=== PATIENT | male | born 1960 ===

== ENCOUNTER 2017-07-19 18:26 | Emergency (ER) | payer OTHER ==
[2017-07-19] MEDS ORDERED: HYDROmorphone INJ* 1 MG/ML CARPUJECT SYRINGE IV ONE (19:05)
[2017-07-19] MEDS ORDERED: Ketorolac INJ* 30 MG/ML 1 ML VIAL IV ONE (19:05)
[2017-07-19] MEDS ORDERED: Ondansetron INJ* 2 MG/ML VIAL IV ONE (19:05)
[2017-07-19] MEDS ORDERED: NS 0.9% 1000 ML* 2,000 ML IV ONE (19:05)
--- NOTE | 2017-07-19 19:43 | RAD ---
Indication: Right flank pain. CT of the abdomen and pelvis was performed without oral or IV contrast administration. Coronal and sagittal reconstructed images were obtained. The lung bases demonstrate no pleural fluid, nodules or masses. Heart is of normal size without evidence of pericardial effusion. The gallbladder demonstrates no calcified gallstones. No pericholecystic fluid or wall thickening is identified. The liver is normal in size. There are multiple low density lesion which appear to be fluid density consistent with cysts in both the left and right lobes. No intrahepatic ductal dilatation is noted. The spleen is normal in size. The pancreas demonstrates no mass or pancreatic ductal dilatation. The common duct is not dilated. No adrenal lesions are noted. The kidneys demonstrates right hydronephrosis and hydroureter. There appears to be a duplicated right renal collecting system. A single ureter is noted with a calculus just above the right ureterovesicular junction measuring 5 mm. The left kidney demonstrates no hydronephrosis although a calculus measuring up to 7 mm is noted in the lower pole. No retroperitoneal lymphadenopathy is noted. No dilated loops of bowel are noted. CT of the pelvis demonstrates no retroperitoneal or pelvic lymphadenopathy. There is a left-sided inguinal hernia which is likely of the indirect type. IMPRESSION: Moderate degree of right hydronephrosis and hydroureter. There is a 5 mm calculus in the distal right ureter just above the right ureterovesicular junction. A duplicated right renal collecting system is present. Nonobstructing calculi is noted in the lower pole of the left kidney. Left-sided inguinal hernia is noted. Hepatic cysts are present.
[2017-07-19 19:59] LABS: Hematocrit 46 % (42-52); Mean Corpuscular HGB Conc 35 g/dl (31-36); Mean Corpuscular Hemoglobin 30 pg (27-31); Mean Corpuscular Volume 85 fL (80-94); Mean Platelet Volume 8 um3 (7.4-10.4); Red Blood Count 5.43 10^6/ul (4.0-5.4); Red Cell Distribution Width 13 % (10.5-15); White Blood Count 12.2 10^3/ul (3.5-10.8)
[2017-07-19 20:10] LABS: Budding Yeast Present (Absent); Urine Bacteria Absent (Absent); Urine Bilirubin Negative (Negative); Urine Glucose Negative (Negative); Urine Nitrite Negative (Negative)
[2017-07-19 20:15] LABS: ALT 14 U/L (7-52); AST 19 U/L (13-39); Albumin 4.4 g/dL (3.2-5.2); Alkaline Phosphatase 53 U/L (34-104); Anion Gap 14 mmol/L (2-11); Blood Urea Nitrogen 16 mg/dL (6-24); C Reactive Protein < 1.00 mg/L (< 5.00); CO2 Carbon Dioxide 23 mmol/L (22-32); Calcium 9.7 mg/dL (8.6-10.3); Chloride 102 mmol/L (101-111); EGFR African American 91.9 (>60); EGFR Non-African American 71.5 (>60); Globulin 2.9 g/dL (2-4); Glucose 111 mg/dL (70-100); Lipase 27 U/L (11.0-82.0); Potassium 3.1 mmol/L (3.5-5.0); Sodium 139 mmol/L (133-145); Total Protein 7.3 g/dL (6.4-8.9)
[2017-07-19] MEDS ORDERED: Tamsulosin CAP* 0.4 MG PO ONE (20:54)
--- NOTE | 2017-07-19 21:00 | ED ---
GI/ HPI - HPI Summary HPI Summary: Pt here w/ Rt sided flank, side and groin pain today. Pain is so bad, he vomited. Was dx'd w/ kidney stone 1 month ago here and was told to f/u w/ urology but has not done so yet. He tried taking 15mg oxycodone he was given then prior to arrival but vomited this back up. He was given pain med upon arrival as he reported greater than 10/10 pain. He is comfortable now and no N/ V since meds of dialudid, toradol and zofran. He is still urinating. Up until pain started, he's been eating and drinking well and denies fever, chills, diarrhea - has been having normal BM's. 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 Pain Intensity: 10 - Allergy/Home Medications Allergies/Adverse Reactions: Allergies Allergy/AdvReac Type Severity Reaction Status Date / Time No Known Allergies Allergy Verified 07/19/17 18:32 PMH/Surg Hx/FS Hx/Imm Hx Previously Healthy: Yes Endocrine/Hematology History: Denies: Hx Anticoagulant Therapy, Hx Blood Disorders GI History: Denies: Hx Cirrhosis, Hx Crohn's Disease, Hx Diverticulosis, Hx Gall Bladder Disease, Hx Gastroesophageal Reflux Disease, Hx Gastrointestinal Bleed, Hx Hiatal Hernia, Hx Irritable Bowel, Hx Obstructive Bowel, Hx Ulcer, Hx Urosepsis History: Reports: Hx Kidney Stones - Rt kidney stone dx'd 1 month ago Denies: Hx Kidney Infection - Immunization History Date of Tetanus Vaccine: unk Date of Influenza Vaccine: none Infectious Disease History: No Infectious Disease History: Denies: Traveled Outside the [place] in Last 30 Days - Family History Known Family History: Positive: None - Social History Occupation: Employed Full-time Lives: With Family Alcohol Use: None Hx Substance Use: No Substance Use Type: Reports: None Hx Tobacco Use: No Smoking Status (MU): Never Smoked Tobacco Review of Systems Constitutional: Negative Negative: Fever, Chills Cardiovascular: Negative Respiratory: Negative Positive: Abdominal Pain, Vomiting, Nausea. Negative: Diarrhea Positive: see HPI Musculoskeletal: Negative Skin: Negative Neurological: Negative Psychological: Normal All Other Systems Reviewed And Are Negative: Yes Physical Exam Triage Information Reviewed: Yes Vital Signs On Initial Exam: Initial Vitals Temp Pulse Resp BP Pulse Ox 96.9 F 84 24 151/96 100 07/19/17 18:28 07/19/17 18:28 07/19/17 18:28 07/19/17 18:28 07/19/17 18:28 Vital Signs Reviewed: Yes Appearance: Positive: Well-Appearing, No Pain Distress - s/p pain medications, Well-Nourished Skin: Positive: Warm, Dry Head/Face: Positive: Normal Head/Face Inspection Eyes: Positive: Normal, EOMI ENT: Positive: Hearing grossly normal, Pharynx normal Respiratory/Lung Sounds: Positive: Clear to Auscultation, Breath Sounds Present Cardiovascular: Positive: Normal, RRR Abdomen Description: Positive: No Organomegaly, Soft Bowel Sounds: Positive: Present Male Genital Exam: Positive: normal genitalia, inguinal tenderness - mild TTP w / mild fullness compared to Rt - does not reproduce pain he's been having, scrotum tenderness (L) - mild TTP w/ fullness Musculoskeletal: Positive: Normal, Strength/ROM Intact Neurological: Positive: Normal, Sensory/Motor Intact, Alert, Oriented to Person Place, Time, CN Intact II-III Psychiatric: Positive: Normal - Sudha Coma Scale Coma Scale Total: 15 Diagnostics - Vital Signs Vital Signs Temp Pulse Resp BP Pulse Ox 07/19/17 19:50 16 07/19/17 18:28 96.9 F 84 24 151/96 100 - Laboratory Lab Results: Lab Results 07/19/17 07/19/17 07/19/17 Range/Units 19:40 19:40 19:40 WBC 12.2 H (3.5-10.8) 10^3/ul RBC 5.43 H (4.0-5.4) 10^6/ul Hgb 16.0 (14.0-18.0) g/dl Hct 46 (42-52) % MCV 85 (80-94) fL MCH 30 (27-31) pg MCHC 35 (31-36) g/dl RDW 13 (10.5-15) % Plt Count 248 (150-450) 10^3/ul MPV 8 (7.4-10.4) um3 Neut % (Auto) 76.6 (38-83) % Lymph % (Auto) 15.6 L (25-47) % [place] % (Auto) 7.2 (1-9) % Eos % (Auto) 0.1 (0-6) % Baso % (Auto) 0.5 (0-2) % Absolute Neuts (auto) 9.4 H (1.5-7.7) 10^3/ul Absolute Lymphs (auto) 1.9 (1.0-4.8) 10^3/ul Absolute Monos (auto) 0.9 H (0-0.8) 10^3/ul Absolute Eos (auto) 0 (0-0.6) 10^3/ul Absolute Basos (auto) 0.1 (0-0.2) 10^3/ul Absolute Nucleated RBC 0 10^3/ul Nucleated RBC % 0 INR (Anticoag Therapy) 0.94 (0.77-1.02) APTT 28.9 (26.0-36.3) seconds Sodium 139 (133-145) mmol/L Potassium 3.1 L (3.5-5.0) mmol/L Chloride 102 (101-111) mmol/L Carbon Dioxide 23 (22-32) mmol/L Anion Gap 14 H (2-11) mmol/L BUN 16 (6-24) mg/dL Creatinine 1.07 (0.67-1.17) mg/dL Est GFR ( Amer) 91.9 (>60) Est GFR (Non-Af Amer) 71.5 (>60) BUN/Creatinine Ratio 15.0 (8-20) Glucose 111 H (70-100) mg/dL Lactic Acid (0.5-2.0) mmol/L Calcium 9.7 (8.6-10.3) mg/dL Total Bilirubin 0.50 (0.2-1.0) mg/dL AST 19 (13-39) U/L ALT 14 (7-52) U/L Alkaline Phosphatase 53 (34-104) U/L C-Reactive Protein < 1.00 (< 5.00) mg/L Total Protein 7.3 (6.4-8.9) g/dL Albumin 4.4 (3.2-5.2) g/dL Globulin 2.9 (2-4) g/dL Albumin/Globulin Ratio 1.5 (1-3) Lipase 27 (11.0-82.0) U/L Urine Color Urine Appearance Urine pH (5-9) Ur Specific Ferguson (1.010-1.030) Urine Protein (Negative) Urine Ketones (Negative) Urine Blood (Negative) Urine Nitrate (Negative) Urine Bilirubin (Negative) Urine Urobilinogen (Negative) Ur Leukocyte Esterase (Negative) Urine WBC (Auto) (Absent) Urine RBC (Auto) (Absent) Amorphous Crystals (Absent) Urine Bacteria (Absent) Urine Yeast (Absent) Urine Glucose (Negative) 07/19/17 07/19/17 Range/Units 19:40 19:40 WBC (3.5-10.8) 10^3/ul RBC (4.0-5.4) 10^6/ul Hgb (14.0-18.0) g/dl Hct (42-52) % MCV (80-94) fL MCH (27-31) pg MCHC (31-36) g/dl RDW (10.5-15) % Plt Count (150-450) 10^3/ul MPV (7.4-10.4) um3 Neut % (Auto) (38-83) % Lymph % (Auto) (25-47) % [place] % (Auto) (1-9) % Eos % (Auto) (0-6) % Baso % (Auto) (0-2) % Absolute Neuts (auto) (1.5-7.7) 10^3/ul Absolute Lymphs (auto) (1.0-4.8) 10^3/ul Absolute Monos (auto) (0-0.8) 10^3/ul Absolute Eos (auto) (0-0.6) 10^3/ul Absolute Basos (auto) (0-0.2) 10^3/ul Absolute Nucleated RBC 10^3/ul Nucleated RBC % INR (Anticoag Therapy) (0.77-1.02) APTT (26.0-36.3) seconds Sodium (133-145) mmol/L Potassium (3.5-5.0) mmol/L Chloride (101-111) mmol/L Carbon Dioxide (22-32) mmol/L Anion Gap (2-11) mmol/L BUN (6-24) mg/dL Creatinine (0.67-1.17) mg/dL Est GFR ( Amer) (>60) Est GFR (Non-Af Amer) (>60) BUN/Creatinine Ratio (8-20) Glucose (70-100) mg/dL Lactic Acid 6.0 H* (0.5-2.0) mmol/L Calcium (8.6-10.3) mg/dL Total Bilirubin (0.2-1.0) mg/dL AST (13-39) U/L ALT (7-52) U/L Alkaline Phosphatase (34-104) U/L C-Reactive Protein (< 5.00) mg/L Total Protein (6.4-8.9) g/dL Albumin (3.2-5.2) g/dL Globulin (2-4) g/dL Albumin/Globulin Ratio (1-3) Lipase (11.0-82.0) U/L Urine Color Yellow Urine Appearance Cloudy Urine pH 9.0 (5-9) Ur Specific Ferguson 1.014 (1.010-1.030) Urine Protein Negative (Negative) Urine Ketones Trace H (Negative) Urine Blood 2+ H (Negative) Urine Nitrate Negative (Negative) Urine Bilirubin Negative (Negative) Urine Urobilinogen Negative (Negative) Ur Leukocyte Esterase Negative (Negative) Urine WBC (Auto) Trace(0-5/hpf) (Absent) Urine RBC (Auto) 3+(>10/hpf) H (Absent) Amorphous Crystals Present H (Absent) Urine Bacteria Absent (Absent) Urine Yeast Present H (Absent) Urine Glucose Negative (Negative) Result Diagrams: 07/19/17 19:40 07/19/17 19:40 Diagnostic Studies Comment: CT ab/pelvis: moderate degree of Rt hydronephrosis and hydroureter. There is a 5mm calculus at the distal right ureter just above the Rt UVJ. A duplicated renal collecting system is present. Nonobstructing calculi L kidney. Lt side inguinal hernia noted - no incarceration, inflammation or fluid noted. Hepatic cysts Lab Statement: Any lab studies that have been ordered have been reviewed, and results considered in the medical decision making process. Re-Evaluation - Re-Evaluation First Eval Change: Improved - pain and nausea resolved after zofran, toradol + dilaudid IV GIGU Course/Dx - Course Course Of Treatment: Pt presents w/ return of Rt sided flank pain radiating into his Rt side and groin. Had this pain last month and was dx'd w/ kidney stone (he believes about 5mm in size). Was rx'd flomax (has not taken) and oxycodone for pain. Took oxycodone 15mg today w/o relief but vomited 1.5 hours later - not sure if he absorped them completely. Has been able to urinate but seemed more difficult at one point here tonight. Received IV toradol, dilaudid and zofran and pain is much better, nausea/vomiting resolved. His CT confirmed 5mm stone at UVJ w/ moderate hydronephrosis and hydroureter. He is also found to have a duplicated renal collecting system. His WBC's are 12 w/o left shift and no fever and urine appears to be w/o infection - does have blood present. With stone passing to it's current location, no s/sx of infection, renal function WNL based on labs and pt has not yet tried flomax, will d/c w/ flomax, pain meds and strainer. Advised if pain is poorly controlled once again, return to ED w/ urology coverage. If we do not have this, [facility], [facility], [facility]. He was incidentally found to have a nonobstructing calculi L kidney 7mm. Lt sided inguinal hernia w/o complaint of pain and moving bowels - advised f/u w/ general surgery to monitor - if danger s/sx present, return to ED. Also found to have Hepatic cysts - discussed w/ pt and son and he will f/u w/ PCP for further investigation. LFT's are WNL here tonight. - Diagnoses Provider Diagnoses: Lower urinary tract stone, Nephrolithiasis, Inguinal hernia, Hepatic cyst - Physician Notifications Discussed Care Of Patient With: Calos Mehta Discharge - Discharge Plan Condition: Stable Disposition: HOME Patient Education Materials: Kidney Stones (ED), Inguinal Hernia (ED), How to Strain Your Urine (ED) Referrals: Black Olmstead MD [Primary Care Provider] - Kalia Pablo MD [Medical Doctor] - Antoni Colón MD [Medical Doctor] - Additional Instructions: #1) The source of your pain is most likely from the kidney stone you are passing on the Rt side. Take flomax (tamusolin) one time a day until you pass the stone. You may also take ibuprofen 600 mg every 6 hours with food alternating with oxycodone 10-15mg every 6 hours (take 1 med then 3 hours later may take the other and continue in this fashion). Once you pass the stone and pain resolves, you no longer need to take these pain medications. Strain every urine every time until you pass a stone(s) and take this specimen to your PCP for analysis. Because you have a 2nd stone in your Left kidney, it is important that you follow-up with a urologist. Call Friday to schedule appointment. *If pain worsens or you develop fever, chills, inability to urinate, return to ED (NOTE: inquire about urology coverage before choosing an ED - you may come here, or go to [facility], [facility], [facility], etc) #2) You were found to have an inguinal hernia. This does not appear to be posing a threat to your health at this time however if you develop pain in your Right lower groin, develop vomiting and/or diarrhea, fever, chills, inability to move bowels, go to the ED. Otherwise, follow-up with a general surgeon to decide if/when surgery is necessary. #3) You were found to have cysts in your liver. These do not appear to be an urgent threat to your health however it is important that you follow-up with your PCP.
[2017-07-19 22:26] VITALS: BP 98/51
== END 2017-07-19 22:27 | disposition home or self-care (01) ==
LOC: ED 18:26
DX: N13.2 Hydronephrosis with renal and ureteral calculous obstruction (principal); K40.90 Unilateral inguinal hernia, without obstruction or gangrene, not specified as recurrent; K76.89 Other specified diseases of liver
CPT/HCPCS: 36415; 74176; 80053; 81003; 81015; 83605; 83690; 85025; 85610; 85730; 86140; 96374; 96375; 99283; J1170; J1885; J2405

== ENCOUNTER 2017-07-23 23:02 | Emergency (ER) | payer OTHER ==
[2017-07-23] MEDS ORDERED: NS 0.9% 1000 ML* 1,000 ML IV ONE (23:36)
[2017-07-23] MEDS ORDERED: HYDROmorphone INJ* 2 MG/ML CARPUJECT SYRINGE IV SLOW PU ONE (23:36)
[2017-07-23] MEDS ORDERED: Ketorolac INJ* 30 MG/ML 1 ML VIAL IV PUSH ONE (23:37)
[2017-07-23] MEDS ORDERED: Metoclopramide IV* 5 MG/ML 2 ML VIAL IV SLOW PU ONE (23:37)
[2017-07-24] MEDS ORDERED: HYDROmorphone TAB* 4 MG PO PRN (00:48)
[2017-07-24] MEDS ORDERED: Metoclopramide TAB* 10 MG PO PRN (00:49)
--- NOTE | 2017-07-24 00:58 | ED ---
Tim Sanchez Tecjoon, scribed for Sim Haq MD on 07/23/17 at 2350 . Abdominal Pain/Male - HPI Summary HPI Summary: This patient is a 57 year old male presenting to [facility] with a chief complaint of right flank pain. Patient states that he has a 5mm stone and is scheduled for surgery tomorrow, but he just cant take the pain. The pain is rated 10/ 10 in severity. Symptoms aggravated by palpation. Symptoms alleviated by nothing. 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 Patient additionally reports nausea, vomiting, back pain. - History of Current Complaint Chief Complaint: EDFlankPain Stated Complaint: KINDEY STONE Time Seen by Provider: 07/23/17 23:26 Hx Obtained From: Patient Onset/Duration: Still Present, Worse Since - today Timing: Constant Severity Currently: Severe Pain Intensity: 10 Pain Scale Used: 0-10 Numeric Location: Flank - right Radiates: Yes Radiates to: Back Aggravating Factor(s): Other: - palpation Alleviating Factor(s): Nothing Associated Signs And Symptoms: Positive: Other - nausea, vomiting, back pain. - Allergies/Home Medications Allergies/Adverse Reactions: Allergies Allergy/AdvReac Type Severity Reaction Status Date / Time No Known Allergies Allergy Verified 07/19/17 18:32 PMH/Surg Hx/FS Hx/Imm Hx Previously Healthy: No Endocrine/Hematology History: Denies: Hx Anticoagulant Therapy, Hx Blood Disorders GI History: Denies: Hx Cirrhosis, Hx Crohn's Disease, Hx Diverticulosis, Hx Gall Bladder Disease, Hx Gastroesophageal Reflux Disease, Hx Gastrointestinal Bleed, Hx Hiatal Hernia, Hx Irritable Bowel, Hx Obstructive Bowel, Hx Ulcer, Hx Urosepsis History: Reports: Hx Kidney Stones - Rt kidney stone dx'd 1 month ago Denies: Hx Kidney Infection - Immunization History Date of Tetanus Vaccine: unk Date of Influenza Vaccine: none Infectious Disease History: No Infectious Disease History: Denies: Traveled Outside the US in Last 30 Days - Family History Known Family History: Negative: Blood Disorder - Social History Alcohol Use: None Hx Substance Use: No Substance Use Type: Reports: None Hx Tobacco Use: No Smoking Status (MU): Never Smoked Tobacco Review of Systems Negative: Fever Negative: Vomiting, Nausea Positive: flank pain Positive: Other - back pain All Other Systems Reviewed And Are Negative: Yes Physical Exam - Summary Physical Exam Summary: VITAL SIGNS: Reviewed. GENERAL: Patient is a well-developed and nourished male who is lying in the stretcher. Patient is not in any acute respiratory distress. Patient seems very uncomfortable due to pain. HEAD AND FACE: No signs of trauma. No ecchymosis, hematomas or skull depressions. No sinus tenderness. EYES: PERRLA, EOMI x 2, No injected conjunctiva, no nystagmus. EARS: Hearing grossly intact. Ear canals and tympanic membranes are within normal limits. MOUTH: Oropharynx within normal limits. NECK: Supple, trachea is midline, no adenopathy, no JVD, no carotid bruit, no c- spine tenderness, neck with full ROM. CHEST: Symmetric, no tenderness at palpation LUNGS: Clear to auscultation bilaterally. No wheezing or crackles. CVS: Regular rate and rhythm, S1 and S2 present, no murmurs or gallops appreciated. ABDOMEN: Right CVA tenderness. Bowel sounds are normal. EXTREMITIES: FROM in all major joints, no edema, no cyanosis or clubbing. NEURO: Alert and oriented x 3. No acute neurological deficits. Speech is normal and follows commands. SKIN: Dry and warm. 1st degree burn on back due to heating pad. Triage Information Reviewed: Yes Vital Signs On Initial Exam: Initial Vitals Temp Pulse Resp BP Pulse Ox 98.5 F 87 22 110/71 100 07/23/17 23:07 07/23/17 23:07 07/23/17 23:07 07/23/17 23:07 07/23/17 23:07 Vital Signs Reviewed: Yes - Sudha Coma Scale Coma Scale Total: 15 Diagnostics - Vital Signs Vital Signs Temp Pulse Resp BP Pulse Ox 07/23/17 23:07 98.5 F 87 22 110/71 100 - Laboratory Lab Statement: Any lab studies that have been ordered have been reviewed, and results considered in the medical decision making process. - CT CT Abd/Pel CT Interpretation: Positive (See Comments) - IMPRESSION: Moderate degree of right hydronephrosis and hydroureter. There is a 5 mm calculus in the distal right ureter just above the right ureterovesicular junction. A duplicated right renal collecting system is present. ED physician has reviewed this radiology report. CT Interpretation Completed By: Radiologist Abdominal Pain Fem Course/Dx - Course Course Of Treatment: This patient is a 57 year old male presenting to [facility] with a chief complaint of right flank pain. Patient states that he has a 5mm stone and is scheduled for surgery tomorrow, but he just cant take the pain. CT Abd/Pel reveals, per radiologist, IMPRESSION: Moderate degree of right hydronephrosis and hydroureter. There is a 5 mm calculus in the distal right ureter just above the right ureterovesicular junction. A duplicated right renal collecting system is present. ED physician has reviewed this radiology report. In the ED course the patient was given Reglan, Toradol, Dilaudid. Patient will be discharged and diagnosed with renal colic. Patient has an appointment for surgery tomorrow and is advised to follow up with PCP in 1 week. The patient is agreeable with this plan. - Diagnoses Provider Diagnoses: Renal colic Discharge - Discharge Plan Condition: Fair Disposition: HOME Patient Education Materials: Renal Colic (ED) Referrals: Black Olmstead MD [Primary Care Provider] - 1 Week Additional Instructions: Patient will be discharged and diagnosed with renal colic. Patient has an appointment for surgery tomorrow and is advised to follow up with PCP in 1 week. The patient is agreeable with this plan. RETURN TO EMERGENCY DEPARTMENT FOR ANY NEW OR WORSENING SYMPTOMS The documentation as recorded by the Tim argueta Tecjoon accurately reflects the service I personally performed and the decisions made by , Sim Haq MD.
[2017-07-24] MEDS ORDERED: Metoclopramide TAB* 10 MG ONE (01:01)
[2017-07-24 01:40] VITALS: BP 102/69
== END 2017-07-24 01:44 | disposition home or self-care (01) ==
LOC: ED 23:02
DX: N23 Unspecified renal colic (principal)
CPT/HCPCS: 96360; 96374; 96375; 99282; A9270-GY; J1170; J1885; J2765

== ENCOUNTER 2017-07-24 14:51 | Day surgery (SDC) | payer OTHER ==
--- NOTE | 2017-07-23 15:28 | HP ---
CC: Dr. Olmstead * DATE OF ADMISSION: 07/24/2017. AGE: 57-year-old male. ADMITTING DIAGNOSES: 1. Calculus right ureter. 2. Right hydronephrosis. PLANNED PROCEDURE: Right ureteroscopy, possible laser and stent insertion. SURGEON: Dr. Kalia Pablo. HISTORY OF PRESENT ILLNESS: Ronnell Arrington is a 57-year-old gentleman who has had episodic right flank pain for almost a month now. He had initially been evaluated in the emergency room in [place] at which time he was told he had a calculus in the right ureter. He continued to have pain and finally was evaluated at [facility] and a CT scan revealed a 5 mm obstructing calculus in the right distal ureter, in addition to a 7 mm left renal calculus. He is now being brought in for right ureteroscopy. PAST MEDICAL HISTORY: Unremarkable. Specifically, there is no history of diabetes mellitus or any other major systemic illness. PAST SURGICAL HISTORY: Significant for vasectomy. MEDICATIONS ON ADMISSION: Flomax 0.4 mg once a day and Percocet prn. ALLERGIES: No known drug allergies. FAMILY HISTORY: Negative for stones. SMOKING HISTORY: He is a nonsmoker. REVIEW OF SYSTEMS: He is otherwise in excellent health. He denies any chest pain or shortness of breath. There is no other major systemic illness. PHYSICAL EXAMINATION GENERAL: Pleasant, healthy-appearing, middle-aged gentleman. VITAL SIGNS: Blood pressure 122/82, pulse 74 per minute, temperature 97.8, oxygen saturation 99 percent on room air. CARDIOVASCULAR: Regular rate and rhythm. S1, S2. LUNGS: Clear bilaterally. ABDOMEN: Soft with right flank tenderness. 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 I gave him the option of continue conservative management, but since he has been having episodic pain for a month , he would like to proceed with right ureteroscopy and the procedure and possible risks were discussed in detail with him. All his questions were answered. I also explained the finding of the left renal calculus which probably will require lithotripsy at one point in the future. PLAN: Right ureteroscopy, possible laser and stent insertion. [id number]/[facility] #: [id number] [facility]
[~2017-07-24 14:51] MED LIST: Buffered Lidocaine 0.9% SYRIN* 5 ML/SYR SYRINGE ONE; cefTRIAXone(*) 2 GM ADDV.VIAL IVPB ONE
[2017-07-24] MEDS ORDERED: Gentamicin IVPREMIX 160 MG/160 ML BAG IV ONE (15:00)
[2017-07-24] MEDS ORDERED: Iohexol 180 (CONTRAST) 10 ML SDV IV ONE (15:57)
[2017-07-24] MEDS ORDERED: Propofol* 10 MG/ML 20 ML BTL IV PUSH ONE (16:36)
[2017-07-24] MEDS ORDERED: fentaNYL* 50 MCG/ML 2 ML VIAL (100 MCG VIAL) ONE (16:36)
[2017-07-24] MEDS ORDERED: Lidocaine 2% PF * 5 ML VIAL ONE (16:36)
[2017-07-24] MEDS ORDERED: Dexamethasone IV* 4 MG/ML 1 ML (4 MG) ONE (16:36)
[2017-07-24] MEDS ORDERED: Famotidine IV* 10 MG/ML 2 ML (20 mg) ONE (16:36)
[2017-07-24] MEDS ORDERED: Midazolam* 1 MG/ML 2 ML VIAL (2 MG) ONE (16:36)
[2017-07-24] MEDS ORDERED: Ondansetron INJ* 2 MG/ML VIAL ONE (16:36)
[2017-07-24] MEDS ORDERED: Buffered Lidocaine 0.9% SYRIN* 5 ML/SYR SYRINGE INTRADERM ONE (16:40)
[2017-07-24] MEDS ORDERED: Acetaminophen TAB* 325 MG PO PRN (16:41)
[2017-07-24] MEDS ORDERED: PROCHLORPERAZINE INJ 5 MG/ML 2 ML VIAL IV PRN (16:41)
[2017-07-24] MEDS ORDERED: fentaNYL* 50 MCG/ML 2 ML VIAL (100 MCG VIAL) IV PRN (16:41)
[2017-07-24] MEDS ORDERED: DiMENhydriNATE IV* 50 MG/ML VIAL IV PUSH PRN (16:41)
[2017-07-24] MEDS ORDERED: Ondansetron INJ* 2 MG/ML VIAL IV PRN (16:41)
--- NOTE | 2017-07-24 18:14 | RAD ---
INDICATION: Right ureteroscopy laser and stent placement. COMPARISON: Comparison is made with a prior CT of the abdomen and pelvis from July 19, 2017. TECHNIQUE: 14 seconds of intermittent fluoroscopic guidance were provided and 5 spot films of the abdomen were centered on the right side. FINDINGS: There is partial opacification of the right renal collecting system. There is dilatation of the renal calyces and proximal ureter. Subsequently there is placement of a double-J stent catheter on the right side which demonstrates normal course. IMPRESSION: INTRAOPERATIVE CONTROL FILMS. CPT II Codes: 6045F
[2017-07-24] MEDS ORDERED: Tamsulosin CAP* 0.4 MG ONE (18:21)
[2017-07-24] MEDS ORDERED: Acetaminophen TAB* 325 MG ONE (18:40)
[2017-07-24 19:04] VITALS: BP 133/79
--- NOTE | 2017-07-24 19:39 | RAD ---
INDICATION: Renal calculi, stent placement. COMPARISON: Comparison is made with a prior CT of the abdomen and pelvis from July 19, 2017. TECHNIQUE: Frontal supine films of the abdomen were obtained. FINDINGS: The small bowel and colon appear nondistended. There is a ureteral stent which projects on the right side demonstrate normal course. There is a 3 mm calcific density which projects over the midportion of the left kidney consistent with a renal calculus. IMPRESSION: STATUS POST RIGHT URETERAL STENT PLACEMENT.
--- NOTE | 2017-07-25 13:46 | OP ---
CC: Dr. Black Olmstead * DATE OF OPERATION: 07/24/17 - [facility] DATE OF : 62 SURGEON: Kalia Pablo MD ANESTHESIOLOGIST: Dr. Adkins. ANESTHESIA: General. PRE-OP DIAGNOSES: 1. Right hydronephrosis. 2. Calculus, right ureter. POST-OP DIAGNOSES: 1. Right hydronephrosis. 2. Calculus, right ureter. OPERATIVE PROCEDURE: Cystoscopy, right retrograde pyelogram, right ureteroscopy and laser lithotripsy of right ureteral calculus and removal of calculus fragments and right stent insertion. COMPLICATIONS: None. POSTOPERATIVE CONDITION: Stable. STENT USED: A 7-Andorran stent right ureter. OPERATIVE FINDINGS: 1. Mildly enlarged prostate, especially median lobe. 2. Trabeculated bladder. 3. High grade obstruction secondary to a 5 to 6 mm calculus impacted in right distal ureter with right hydronephrosis and proximal hydroureter. INDICATIONS: Ronnell Arrington is a 57-year-old gentleman who has had several episodes of pain over the course of last month, requiring 3 separate trips to the emergency department for a calculus in the right ureter. DESCRIPTION OF PROCEDURE: After induction of general anesthesia, the patient was placed in dorsal lithotomy position. Sequential compression devices were in place and functioning. Initial cystoscopy revealed normal appearing urethra , mild to moderately large prostate especially the median lobe. The bladder is trabeculated but otherwise normal. Some edema and inflammation was noted surrounding the right orifice. A guidewire was introduced into the right ureter. After some initial resistance was overcome, the wire was advanced proximally. Retrograde pyelogram revealed right hydronephrosis and a dilated tortuous proximal right ureter. A 6- Andorran ureteroscope was introduced and advanced under direct vision in the distal ureter, a 5 to 6 mm calculus was noted to be impacted with surrounding edema and some bleeding noted from the urothelium (the patient had significant gross hematuria last night). Using a 550 micron holmium laser, the calculus was successfully fragmented and all of the sizeable fragments were removed. A 7-Andorran stent was introduced and positioned under fluoroscopy with good proximal and distal positioning obtained. The bladder was emptied. The patient tolerated the procedure satisfactorily and was transferred back to the recovery area in stable condition. The patient has a 7 mm calculus in the left kidney, which will probably require lithotripsy at a later date. [id number]/[facility] #: [id number] DAVID
== END 2017-07-24 19:22 | disposition home or self-care (01) ==
LOC: OR 14:51
PROVIDERS: ATTEND Urology
DX: N13.2 Hydronephrosis with renal and ureteral calculous obstruction (principal); N40.0 Benign prostatic hyperplasia without lower urinary tract symptoms; N32.89 Other specified disorders of bladder
CPT/HCPCS: 74000; 74420; 82365; 88300; A9270-GY; C1876; J0696; J1100; J1580; J2250; J2405; J2704; J3010

== ENCOUNTER → 2019-02-22 08:10 | Day surgery (SDC) | payer OTHER ==
--- NOTE | 2019-02-18 14:08 | HP ---
CC: Dr. Olmstead; Dr. Pablo ADMITTING HISTORY AND PHYSICAL: DATE OF ADMISSION: 02/22/19 ADMITTING DIAGNOSIS: Left renal calculus. PLANNED PROCEDURE: Shockwave lithotripsy of left renal calculus. SURGEON: Dr. Pablo. HISTORY OF PRESENT ILLNESS: Ronnell Arrington is a 58-year-old gentleman with a history of renal calculi. He had recently called with some complaints of left-sided flank pain and was noted to have an approx imately 6 mm nonobstructing calculus in the left kidney. He desires treatment of the same, and after thorough discussion of the procedure of shockwave lithotripsy, he has been brought in for the same. PAST MEDICAL HISTORY: Significant for renal calculi. MEDICATIONS: On admission, none. ALLERGIES: No known drug allergies. FAMILY HISTORY: Negative for stones. SMOKING HISTORY: He is a nonsmoker. REVIEW OF SYSTEMS: He is, otherwise, in excellent health. There is no history of diabetes mellitus or any other major systemic illness. PHYSICAL EXAMINATION GENERAL: Reveals a pleasant, healthy-appearing middle-aged gentleman. VITAL SIGNS: Blood pressure is 110/62; pulse 63 per minute and regular; oxygen saturation 98% on alexa m air; temperature 96.1. LUNGS: Clear bilaterally. CARDIOVASCULAR EXAM: Regular rate and rhythm. S1, S2. ABDOMEN: Soft with mild left flank tenderness. IMPRESSION: A 58-year-old gentleman with a recent episode of left-sided flank pain and a nonobstruc ting left renal calculus. PLAN: Planned procedure is shockwave lithotripsy of left renal calculus. [id number]/[facility] #: [id number]
[~2019-02-22 08:10] MED LIST changes: -Buffered Lidocaine 0.9% SYRIN* 5 ML/SYR SYRINGE ONE; +Buffered Lidocaine 1% SYRIN* 1 ML/SYRINGE INTRADERM ONE; +Dexamethasone IV* 4 MG/ML 1 ML (4 MG) ONE; +Famotidine IV* 10 MG/ML 2 ML (20 mg) IV ONE; +Famotidine IV* 10 MG/ML 2 ML (20 mg) ONE; +Furosemide IV* 10 MG/ML 2 ML VIAL (20 MG) ONE; +KETAMINE HCL* 50 MG/ML 10 ML VIAL ONE; +Lactated Ringers 1000 ML Bag* 1,000 ML IV SCH; +Lidocaine 2% PF * 5 ML VIAL ONE; +Midazolam* 1 MG/ML 5 ML VIAL (5 MG) ONE; +Naloxone* 0.4 MG/ML 1 ML VIAL IV PRN; +Ondansetron INJ* 2 MG/ML VIAL IV PRN; +Ondansetron INJ* 2 MG/ML VIAL ONE; +Propofol* 10 MG/ML 20 ML BTL ONE; +fentaNYL* 50 MCG/ML 2 ML VIAL (100 MCG VIAL) IV PRN; +fentaNYL* 50 MCG/ML 2 ML VIAL (100 MCG VIAL) ONE; +oxyCODONE/Acetamin 5/325 MG* TAB PO PRN
[2019-02-22 14:12] VITALS: BP 122/80
--- NOTE | 2019-02-22 14:20 | OP ---
CC: Dr. Black Olmstead * DATE OF OPERATION: 02/22/19 - [facility] DATE OF : 62 SURGEON: Kalia Pablo MD. ANESTHESIOLOGIST: Dr. Tyler. ANESTHESIA: General. PRE-OP DIAGNOSIS: Left renal calculus. POST-OP DIAGNOSIS: Left renal calculus. OPERATIVE PROCEDURE: Shockwave lithotripsy of left renal calculus. COMPLICATIONS: None. POSTOPERATIVE CONDITION: Stable. INDICATION: Urocharlene Arrington is a 58-year-old gentleman who was recently seen in followup and noted to have a left renal calculus and he desires treatment of the same. DESCRIPTION OF PROCEDURE: After induction of general anesthesia, the patient was placed on the lithotripsy table in the supine position. The calculus in the midpole of the left kidney was localized using fluoroscopy. Shockwave lithotripsy was commenced at a rate of 60 shocks per minute. After the initial 300 shocks, there was a pause in lithotripsy for several minutes in an effort to minimize any potential trauma to the kidney. Lithotripsy was then resumed and periodic imaging revealed adequate localization and fragmentation. A total of 2000 shocks were delivered. The patient tolerated the procedure satisfactorily and was transferred back to the recovery area in stable condition. [id number]/[facility] #: [id number] MTDD
== END | disposition home or self-care (01) ==
LOC: OR 08:10
PROVIDERS: ATTEND Urology
DX: N20.0 Calculus of kidney (principal); Z87.442 Personal history of urinary calculi
CPT/HCPCS: 74018; J0696; J1100; J1940; J2250; J2405; J2704; J3010